=== PATIENT | female | born 1935 | race Caucasian/White ===

== ENCOUNTER 2024-05-14 08:48 | Day surgery (SDC) | payer MEDICARE ==
[~2024-05-14] VITALS: Ht 152.4 cm; Wt 47.9 kg
[2024-05-14] VITALS (11 sets, daily range): BP systolic 142–185; BP diastolic 63–77; PULSE 70–74; RESP 10–12; TEMP 98.2; O2SAT 96–99
[2024-05-14] MEDS ORDERED: MELA10CA2 PO (09:39)
[2024-05-14] MEDS ORDERED: ATOR20TA66 PO (09:39)
[2024-05-14] MEDS ORDERED: MULT-1085 PO (09:39)
[2024-05-14] MEDS ORDERED: ASPI-611 PO (09:39)
[2024-05-14] MEDS ORDERED: MAGN250T11 PO (09:39)
[2024-05-14] MEDS ORDERED: OMEP20CA15 PO (09:39)
[2024-05-14] MEDS ORDERED: CHOL100046 PO (09:39)
[2024-05-14] MEDS ORDERED: OMEG-5 PO (09:39)
[2024-05-14] MEDS ORDERED: DOCU-337 PO (09:39)
[2024-05-14] MEDS ORDERED: FURO-150 PO (09:39)
[2024-05-14] MEDS ORDERED: DORZ10DR26 EACHEYE (09:39)
[2024-05-14] MEDS ORDERED: METO50TA7 PO (09:39)
[2024-05-14] MEDS ORDERED: CYAN100020 SL (09:39)
[2024-05-14] MEDS ORDERED: FERR236T3 PO (09:39)
[2024-05-14] MEDS ORDERED: XAL0.005OS EACHEYE (09:39)
[2024-05-14 09:42] LABS: BASOPHILS # (AUTO) 0.1 X10'3 (0-0.2); EOSINOPHILS # (AUTO) 0.2 X10'3 (0-0.9); EOSINOPHILS % (AUTO) 2.8 % (0-6); HEMATOCRIT 38.8 % (35.0-45.0); HEMOGLOBIN 12.7 g/dl (12.0-16.0); LYMPHOCYTES % (AUTO) 14.1 % (21-51); MEAN CORPUSCULAR HEMOGLOBIN 27.2 PG (27.0-31.0); MEAN CORPUSCULAR HGB CONC 32.7 g/dL (33.0-36.5); MEAN CORPUSCULAR VOLUME 83.1 FL (78-98); MEAN PLATELET VOLUME 7.5 FL (7.4-10.4); MONOCYTES # (AUTO) 0.6 X10'3 (0-0.9); MONOCYTES % (AUTO) 8.4 % (2-12); NEUTROPHILS # (AUTO) 5.4 X10'3 (1.8-7.7); NEUTROPHILS % (AUTO) 73.7 % (42-75); PLATELET COUNT 240 X10'3 (140-440); RED BLOOD COUNT 4.67 X10'6 (4.20-5.60); RED CELL DISTRIBUTION WIDTH 15.9 % (11.5-14.5); WHITE BLOOD COUNT 7.3 X10'3 (4.5-11.0)
[2024-05-14 09:49] LABS: ANION GAP 10 (8-16); BLOOD UREA NITROGEN 22 MG/DL (7-18); BUN/CREATININE RATIO 27.5 (10.0-20.0); CALCIUM 9.2 MG/DL (8.5-10.1); CHLORIDE 97 MMOL/L (99-107); GLUCOSE 97 MG/DL (70-104); MAGNESIUM 2.3 MG/DL (1.5-2.4); SODIUM 135 MMOL/L (135-145); TOTAL CARBON DIOXIDE 28.5 MMOL/L (24-32); eCRCL 36 ML/MIN; eGFR 68 ML/MIN
[2024-05-14 09:51] LABS: PROTHROMBIN TIME 10.4 SECONDS (9.0-12.0)
[2024-05-14] MEDS: sodium bicarbonate 1meq/ml syr 150 ML in dextrose 5%-water 1,000 ML IV ONE (10:01)
[2024-05-14] MEDS: normal saline 1,000 ML IV SCH (10:02)
[2024-05-14] MEDS: diphenhydrAMINE 25mg capsule PO PRN (10:23)
[2024-05-14] MEDS ORDERED: midazolam 1 mg/ML 2ml injection ONE ×2 (11:10→11:11)
[2024-05-14] MEDS ORDERED: verapamil 2.5 mg/ml inj IV ONE (11:10)
[2024-05-14] MEDS ORDERED: LIDOcaine 1% (10mg/ml) 2ml vial ONE (11:10)
[2024-05-14] MEDS ORDERED: fentaNYL/PF 50MCG/1 ML 2ML syringe ONE (11:10)
[2024-05-14] MEDS ORDERED: LIDOcaine 1% 30ml preserv. free vial ONE (11:10)
[2024-05-14] MEDS ORDERED: iohexol 350 MG/ML 50ML vial IV ONE (11:11)
[2024-05-14] MEDS ORDERED: heparin 1,000unit/ml 10ml vial 10 ML ONE (11:11)
[2024-05-14] MEDS ORDERED: iohexol 350MG/ML 100ml bottle IV ONE (11:11)
[2024-05-14] MEDS ORDERED: nitroGLYCERIN 500mcg/5mL D5W 5 ML IV ONE (11:20)
[2024-05-14] MEDS ORDERED: ticagrelor 90mg tablet ONE (12:20)
[2024-05-14] MEDS ORDERED: HYDROcodone/acetaminophen 5mg/325mg tablet PO PRN (13:05)
[2024-05-14] MEDS ORDERED: HYDROcodone/acetaminophen 10/325mg tab PO PRN (13:05)
[2024-05-14] MEDS ORDERED: proCHLORperazine 10 MG/2 ml inj IV PRN (13:05)
[2024-05-14] MEDS ORDERED: ondansetron/PF 4mg/2ml inj IV PRN (13:05)
[2024-05-14] MEDS: cloNIDine 0.1 mg tablet PO ONE (13:57)
== END 2024-05-14 17:45 | disposition home or self-care (01) ==
LOC: SSTAY O 08:48
PROVIDERS: ATTEND Internal Medicine Cardiovascular Disease
DX: I25.119 Atherosclerotic heart disease of native coronary artery with unspecified angina pectoris (principal); I44.7 Left bundle-branch block, unspecified; I10 Essential (primary) hypertension; E78.5 Hyperlipidemia, unspecified; Z79.899 Other long term (current) drug therapy
CPT/HCPCS: 36415; 80048; 83735; 85025; 85610; 93005; 93458; 99152; 99153; A4615; A6258; A6402; C1769; C1894; J1644; J2001; J2250; J3010; J3490; J7030; J7070; Q0163; Q9967; Z7610

== ENCOUNTER 2024-05-21 10:10 | Outpatient (CLI) | payer MEDICARE ==
[~2024-05-21] VITALS: Ht 152.4 cm; Wt 47.6 kg
[~2024-05-21 10:10] MED LIST: ASPI-611 PO; ATOR20TA66 PO; CHOL100046 PO; CYAN100020 SL; DOCU-337 PO; DORZ10DR26 EACHEYE; FERR236T3 PO; FURO-150 PO; MAGN250T11 PO; MELA10CA2 PO; METO50TA7 PO; MULT-1085 PO; OMEG-5 PO; OMEP20CA15 PO; XAL0.005OS EACHEYE
[2024-05-21] MEDS ORDERED: diphenhydrAMINE 25mg capsule PO PRN (11:10)
[2024-05-21] MEDS ORDERED: sodium bicarbonate 1meq/ml syr 150 ML in dextrose 5%-water 1,000 ML IV SCH (11:10)
[2024-05-21] MEDS ORDERED: normal saline 1,000 ML IV SCH (11:10)
[2024-05-21 11:22] LABS: BASOPHILS # (AUTO) 0.1 X10'3 (0-0.2); EOSINOPHILS # (AUTO) 0.3 X10'3 (0-0.9); EOSINOPHILS % (AUTO) 3.4 % (0-6); HEMATOCRIT 34.9 % (35.0-45.0); HEMOGLOBIN 11.6 g/dl (12.0-16.0); LYMPHOCYTES # (AUTO) 1.2 X10'3 (1.1-4.8); LYMPHOCYTES % (AUTO) 14.2 % (21-51); MEAN CORPUSCULAR HGB CONC 33.4 g/dL (33.0-36.5); MEAN CORPUSCULAR VOLUME 83.9 FL (78-98); MEAN PLATELET VOLUME 7.8 FL (7.4-10.4); MONOCYTES # (AUTO) 0.7 X10'3 (0-0.9); NEUTROPHILS % (AUTO) 72.4 % (42-75); PLATELET COUNT 242 X10'3 (140-440); RED BLOOD COUNT 4.16 X10'6 (4.20-5.60); RED CELL DISTRIBUTION WIDTH 16.3 % (11.5-14.5); WHITE BLOOD COUNT 8.2 X10'3 (4.5-11.0)
[2024-05-21 11:31] LABS: ALBUMIN 3.7 G/DL (3.4-5.0); ANION GAP 9 (8-16); BLOOD UREA NITROGEN 21 MG/DL (7-18); BUN/CREATININE RATIO 23.9 (10.0-20.0); CALCIUM 8.8 MG/DL (8.5-10.1); CHLORIDE 99 MMOL/L (99-107); CREATININE 0.88 MG/DL (0.40-0.90); GLUCOSE 97 MG/DL (70-104); MAGNESIUM 2.2 MG/DL (1.5-2.4); POTASSIUM 4.1 MMOL/L (3.5-5.1); SODIUM 135 MMOL/L (135-145); TOTAL CARBON DIOXIDE 27.2 MMOL/L (24-32); eCRCL 32 ML/MIN; eGFR 61 ML/MIN
[2024-05-21 11:32] LABS: PROTHROMBIN TIME 10.8 SECONDS (9.0-12.0)
[2024-05-21] MEDS ORDERED: TICA90TA2 PO (11:35)
[2024-05-21] MEDS ORDERED: fentaNYL/PF 50MCG/1 ML 2ML syringe ONE (12:32)
[2024-05-21] MEDS ORDERED: midazolam 1 mg/ML 2ml injection ONE (12:32)
[2024-05-21] MEDS ORDERED: LIDOcaine 1% 30ml preserv. free vial ONE (12:32)
[2024-05-21] MEDS ORDERED: iohexol 350MG/ML 100ml bottle IV ONE (12:33)
[2024-05-21] MEDS ORDERED: heparin 1,000unit/ml 10ml vial 0 ML ONE (12:33)
[2024-05-21] MEDS ORDERED: dextrose 5% water 500ml 500 ML ONE (12:42)
[2024-05-21 14:23] VITALS: PULSE 70; RESP 18; O2SAT 98
[2024-05-21 14:57] LABS: ABG BASE EXCESS 0.2 mmol/L (-2.0-2.0); ABG HCO3 24.1 mmol/L (22.0-26.0); ABG OXYGEN SATURATION 93.5 % (94-97); ABG PCO2 (T) 36.5 mmHg (32.0-45.0); ABG PH (T) 7.437 (7.350-7.450); ABG PO2 (T) 66.8 mmHg (75.0-100.0); ALLEN'S TEST POSITIVE; FCOHb 0.3 % (0.0-3.9); FHHb 6.5 % (0.0-5.0); FMetHb 0.1 % (0.0-1.5); FO2Hb 93.1 % (94-97); MODE ROOM AIR; TOTAL HEMOGLOBIN 12.3 G/dl (12.0-16.0)
== END 2024-05-21 23:00 | disposition home or self-care (01) ==
LOC: LAB 10:10 → SSTAY O 10:10 → EDSTATUS 12:30 → LAB 23:00
PROVIDERS: ATTEND Internal Medicine Cardiovascular Disease
DX: I25.10 Atherosclerotic heart disease of native coronary artery without angina pectoris (principal); Z53.8 Procedure and treatment not carried out for other reasons; I44.7 Left bundle-branch block, unspecified; I65.23 Occlusion and stenosis of bilateral carotid arteries; I11.0 Hypertensive heart disease with heart failure; I50.21 Acute systolic (congestive) heart failure; E78.5 Hyperlipidemia, unspecified; I25.5 Ischemic cardiomyopathy; Z88.2 Allergy status to sulfonamides
CPT/HCPCS: 36415; 36600; 71046; 80048; 82803; 83735; 85018; 85025; 85610; 86885; 86900; 86901; 86920; 93005; 93880; 93970; 94010; A4615; A6258; C1725; C1769; C1894; J1644; J2250; J3010; J7030; J7060; Z7610; 94760; J3490; Q9967